=== PATIENT | female | born 1980 | race African-American/Black ===

== ENCOUNTER → 2023-05-31 | Emergency (ER) | payer BC ==
[~2023-05-31] MED LIST: DIPHENHYDRAMINE 50 MG/ML VIAL ONE; KETOROLAC 30 MG/ML INJ ONE; METOCLOPRAMIDE 10 MG/2mL INJ ONE; NA CHLORIDE 0.9% 1,000 ML ONE
--- OUTSIDE RECORDS SUMMARY | 2023-05-31 09:57 | XMS REPORT | Continuity of Care Document ---
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 Name Role Phone PCP, UNKNOWN Primary Care Physician Unavailab le ALVAREZ_GCBZW_Kadiyala_S Attending Clinician Unavaila chiki GOETZ_ Attending Clinician Unavail able EBRAPABLO RIVERO Attending Clinician Unavailable Only, Ang Db Test Attending Clinician Unavailabl e Ebrahim ROLLER MECHANICPablo Attending Clinician [phone] Timoteo Santoyo Attending Clinician Unavailable GC_GCJaisonZW_Kadiyala_S Admitting Clinician Unavaila chiki GOETZ_ Admitting Clinician Unavail able Payers Payer Name Policy Type Policy Number Effective Date Expirati on Date Source [facility] [place] [id number] 2017 00:00:00 [facility] [id number] 2017 00:00:00 Allergies, Adverse Reactions, Alerts Allergy Name Allergy Type Status Severity Reaction(s) Onset Date Inactive Date Treating Clinician Comments Source NO KNOWN ALLERGIE S Drug Class Active [facility] Social History Social Habit Start Date Stop Date Quantity Comments Source Exposure to SARS-CoV-2 (event) Yes [facility] Sex Assigned At 1980 00:00:00 1980 00:00:00 [facility] Smoking Status Start Date Stop Date Source Unknown if ever smoked Unive [facility] Encounters Start Date/Time End Date/Time Encounter Type Admission Type Attending Clinicians Care Facility Care Department Encounter ID Source 2023-04-01 00:00:00 2023-04-01 00:00:00 Outpatient GC_GCBZW_Ka diyvette_S [facility] [id number] [facility] 2021-07-14 12:55:00 2021-07-14 12:55:00 Outpatient CAMILA_DO MAST__ [facility] [id number] [facility] 2021-05-20 13:45:00 2021-05-20 14:14:53 Outpatient R PABLO CARRILLO [facility] [id number] [facility] 2021-05-20 13:45:00 2021-05-20 14:00:00 Laboratory Only Only, Ang Db Test Pablo Carrillo [facility] [id number] [facility] 2021-04-04 18:23:00 2021-04-04 18:23:00 [facility] [id number] [facility] Results Test Description Test Time Test Comments Results Result Co mments Source Drug Screen,[id number] 20:40:00* Test Item Value Reference Range Interpretation Comme nts PCP Phencyclidine Screen,Uri ne (test code = PCPU) Negative Negative Amphetamine Screen,Urine (te st code = AMPU) Negative Negative Methadone Screen,Urine (test code = METHU) Negative Negative Opiate Screen,Urine (test co de = UOPIS) Negative Negative Barbituates Screen,Urine (te st code = BARBU) Negative Negative Benzodiazepines Screen,Urine (test code = UBENZS) Negative Negative Cocaine Screen,Urine (test c ode = UCOCS) Negative Negative Cannabinoid Screen,Urine (te st code = UTHCS) Negative Negative Propoxyphene Screen, Urine ( test code = UPROP) Negative Negative Complete Blood Count Auto [id number] 18:55:00* Test Item Value Reference Range Interpretation Comme nts White Blood Count (test code = WBCT) 13.5 x10 3/uL 4.4-10.5 H Red Blood Count (test code = RBC) 4.87 x10 6/uL 3.75-5.20 N Hemoglobin (test code = HGBT) 12.1 g/dL 12.2-14.8 L Hematocrit (test code = HCTT) 38.4 % 36.5-44.4 N Mean Corpuscular Volume (claudia t code = MCV) 78.90 fL 80.00-100.00 L Mean Corpuscular Hemoglobin (test code = MCH) 24.8 pg 27.0-32.5 L Mean Corpuscular HGB Conc (test code = MCHC) 31.50 g/dL 32.00-37.50 L RDW Coefficient of Variation (test code = RDWCV) 13.5 % 11.5-14.5 N Platelet Count (test code = PLTT) 410.0 x10 3/uL 140.0-440.0 N Mean Platelet Volume (test code = MPV) 9.2 fL Immature Granulocytes % (Aut o) (test code = IMMGRAN%) 0.5 % 0.0-5.0 N Neutrophils % (Auto) (test code = NE%) 80.3 % 36.0-70.0 H Lymphocytes % (Auto) (test code = LY%) 12.6 % 12.0-44.0 N Monocytes % (Auto) (test cod e = MO%) 5.9 % 0.0-11.0 N Eosinophils % (Auto) (test code = EO%) 0.3 % 0.0-7.0 N Basophils % (Auto) (test cod e = BA%) 0.4 % 0.0-2.0 N Immature Granulocytes # (Aut o) (test code = IMMGRAN#) 0.07 x10 3/uL Neutrophils # (Auto) (test code = NE#) 10.9 x10 3/uL 1.6-7.4 H Lymphocytes # (Auto) (test code = LY#) 1.70 x10 3/uL 0.50-4.60 N Monocytes # (Auto) (test cod e = MO#) 0.80 x10 3/uL 0.00-1.20 N Eosinophils # (Auto) (test code = EO#) 0.04 x10 3/uL 0.00-0.74 N Basophils # (Auto) (test cod e = BA#) 0.05 x10 3/uL 0.00-0.21 N nRBC Abs (test code = NRBCA) 0 nRBC Pct (test code = NRBCP) 0 % Prothrombin Time [id number] 18:55:00* Test Item Value Reference Range Interpretation Comme nts Prothrombin Time (test code = PT) 10.9 Seconds 9.3-12.1 N *Note New Refer ence Range INR (test code = INR) 1.0 ratio 0.9-1.2 N Reference Interv al is for non-anticoagulated patients.Suggested INR Therapeutic Range for Vitamin K antogonisttherapy:LEV ELS OFTHERAPY INDICATIONS TARGET INR RANGEStandard Dose Venous Thrombosis, 2.0 - 3.0 Atrial Fibrillation, Pulmonary Embolism.High Dose Valvular Heart Disease, 2.5 - 3.5 Mechanical Heart, Intracardiac Thrombosis.*Note New Reference Range HCG, Serum Qual (LAB)2021-04-04 18:55:00* Test Item Value Reference Range Interpretation Comme nts HCG, Serum Qual (LAB) (test code = HCGQ) Negative Negative Comprehensive Metabolic [id number] 18:55:00* Test Item Value Reference Range Interpretation Comme nts SODIUM (test code = NA) 140.0 mmol/L 136.0-145.0 N Potassium,K (test code = K) 3.8 mmol/L 3.0-5.1 N Chloride (test code = CL) 105 mmol/L 98-107 N Carbon Dioxide (test code = CO2) 26 mmol/L 20-31 N Anion Gap (test code = GAP) 9 mmol/L 5-15 N Blood Urea Nitrogen (test co de = BUN) 16 mg/dL 9-23 N Creatinine (test code = CREATT) 0.81 mg/dL 0.55-1.02 N Creatinine Clr Calc Pharmacy (test code = CRCLPHA) 104.80 mL/min Estimated GFR ( Ameri ca (test code = EGFRAA) > 60 mL/min/1.73m2 Estimated GFR (Non Afr Ameri ca (test code = EGFRNAA) > 60 mL/min/1.73m2 BUN/Creatinine Ratio (test c ode = BCRATIO) 20 ratio 10-20 N Glucose (test code = GLU) 102 mg/dL 74-106 N Osmolality,Calculated (test code = OSMOC) 290.7 Calcium (test code = CA) 8.7 mg/dL 8.3-10.6 N Bilirubin,Total (test code = BILIT) 1.0 mg/dL 0.2-1.1 N Aspartate Amino Transferase (test code = AST) 26 U/L 0-34 N Alanine Aminotransferase (te st code = ALT) 14 U/L 10-49 N Total Protein (test code = TP) 7.3 g/dL 5.7-8.2 N Albumin Level (test code = ALB) 4.4 g/dL 3.2-4.8 N Globulin (test code = GLOB) 2.9 mg/dL 2.3-3.5 N Albumin/Globulin Ratio (test code = AGRATIO) 1.5 ratio 0.8-2.0 N Alkaline Phosphatase (test c ode = ALP) 63 U/L 46-116 N Creatine [id number] 18:55:00* Test Item Value Reference Range Interpretation Comme nts Creatine Kinase (test code = CK) 91 U/L 46-171 N Troponin I High [id number] 18:55:00* Test Item Value Reference Range Interpretation Comme nts Troponin I High Sensitivity (test code = TROPHS) < 2.50 pg/mL 0-45 N < 2.5Interpretiv e Comments:* The 99th percentile URL for the assay is <45 pg/ml.* A rise and fall in Troponin I with at least onevalue above the 99th percentile with clinical evidence ofmyocardial ischemia would support a diagnosis of AMI. Adelta of at least 20% is recommended to assess acutechanges in results above the 99th percentile in serialmeasurements. [id number] 18:55:00* Test Item Value Reference Range Interpretation Comme [facility] Lipase (test code = LIP) 21 U/L 12-53 N Ethanol [id number] 18:55:00* Test Item Value Reference Range Interpretation Comme [facility] Ethanol (test code = ETOH) 145 mg/dL CT abdomen pelvis w [facility] [address] [place], [place] [address] Patient Name: Francisco Flores Medical Record#: [id number] Address: [address] City/State/Zip: [place] [address]: Timoteo Santoyo DO Insurance: Self Pay /Age/Sex: 1980/40/F Admit/Reg Date: 04/04/[address]: Timoteo Santoyo DO Location: [facility]/ PCP: PCP,UNKNOWN Date of Service: 04/04/21 Order (s): CT abdomen pelvis w con CPT Code: 94294 Report Number: [id number] Reason for Exam: Abdominal Pain EXAM: CT ABDOMEN AN D PELVIS WITH IV CONTRAST DICTATION LOCATION: H48 HISTORY: Female, 40 years of age with Abdominal Pain TECHNIQUE: Contrast: Nonionic IV contrast was given. No GI contrast was given. Portal venous phase: Abdomen and pelvis Delayed phase: None Reconstructions: Coronal and sagittal One or more of the following dose reduction techniques were used: Automated exposure control; adjustment of the mA and/or kV according to the patient size; and/or use of iterative reconstruction technique. COMPARISON: None FINDINGS: Statements: Exam quality is acceptable. Lower thorax: Unremarkable. Hepatobiliary: The liver is normal without focal lesion. The gallbladder is normal. No biliary dilation. Pancreas: Normal. Spleen: Normal. Adrenals: Normal. Genitourinary: No solid renal mass, significant cortical thinning, obvious renal stone or hydronephrosis. Ureters are unremarkable. Urinary bladder is unremarkable. Tampon seen in the vagina. Uterus is retroflexed, enlarged, lobulated, and heterogeneous suggesting multiple fibroids. Ovaries are normal. Gastrointestinal: There is questionable mild mucosal thickening versus contraction in the distal ascending colon, hepatic flexure, transverse colon, and splenic flexure suggesting nonspecific colitis. No other focal bowel wall thickening. No evidence for bowel obstruction. No perienteric inflammation. The appendix is normal. Vascular: No aortic aneurysm or dissection. IVC is unremarkable. Portal vein is patent. Lymphatics: No enlarged lymph nodes byCT size criteria. Bones/Soft Tissues: No acute osseous findings. There are bilateral breast implants. Small 1 cm fat- containing umbilical hernia is noted. No other ventral hernias are seen. Peritoneum/Other: No free intraperitoneal air. Small amount of free fluid seen in IMPRESSION: 1. Questionablemucosal thickening in colon suggesting nonspecific colitis. Correlate with clinical signs and symptoms. 2. Small amount of free fluid in pelvic cul-de-sac. 3. Fibroid uterus. 4. Normal appendix. Elect ronically signed by: Belkis Spears MD 04/05/2021 12:54 AM CDT - [id number] Dictated By: Belkis Spears MD 04/05/2137 Signed By: Belkis Spears MD 04/05/2137 TD/TT: 04/05/2137 Tech: OMO01 cc: PCPJS; [id number]* Timoteo Santoyo DO; PCP,UNKNOWNEKG ED ElectrocardiogramSt. [address] [address] Patient Name: Francisco Flores Medical Record#: [id number] Address: [address] City/[facility]/Zip: [place] [address]: Timoteo Santoyo DO Insurance: [employer] [facility] /Age/Sex: 1980/40/F Self Pay Admit/Reg Date: 04/04/[address]: Timoteo Santoyo DO Location: [facility]/ PCP: PCP,UNKNOWN Date of Service: 04/04/21 Order (s): EKGED Electrocardiogram CPT Code: 08354 Report Number: [id number] Reason for Exam: CHEST PAIN Sinusrhythm Probable left atrial enlargement Low voltage, precordial leads Abnormal inferior Q waves Summary: Borderline ECG I51.7 Dictated By: Jac Preciado MD 04/04/211905 Signed By: Scott Preciado MD 04/09/21 0953 TD/TT: 04/04/211905 Tech: SVCCPACS cc: PCPJS; [id number]* Timoteo Santoyo DO; PCP,UNKNOWNXR chest 1VSt. [address] [address] Patient Name: Francisco Flores Medical Record#: [id number] Address: [address] City/State/Zip: [place] [address]: Timoteo Santoyo DO Insurance: Self Pay /Age/Sex: 1980 40/F Admit/Reg Date: 04/04/[address]: Timoteo Santoyo DO [facility] PCP: PCP,UNKNOWN Date of Service: 04/04/21 Order (s): XR chest 1V CPT Code: 40178 Report Number: [id number] Reason for Exam: Shortness of Breath LOCATION: Q15 HISTORY: 40-year-old female who presents with dyspnea. COMMENT: A frontal chest radiograph was obtained. The lungsare clear and well-aerated. The cardiac silhouette, marlon, and mediastinum are within normal limits.The skeleton and soft tissues are unremarkable. Cardiac monitoring leads are present. IMPRESSION: Unremarkable chest. Electronically signed by: Nasim Paredes MD 04/04/2021 7:21 PM CDT Dictated By: Nasim Paredes MD 04/04/211912 Signed By: Nasim Paredes MD 04/04/211912 TD /TT: 04/04/211912 Tech: [facility] cc: PCPUNK; [id number]* Timoteo Santoyo DO; PCP,UNKNOWNEKG ED Electrocardiogram[address] [address] Patient Name: Francisco Flores Medical Record#: [id number] Address: [facility] City/State/Zip: [place] [address]: Timoteo Santoyo DO Insurance: [facility] /Age/Sex: 1980/40/F Self Pay Admit/Reg Date: 04/04/[address]: Timoteo Santoyo DO [facility] PCP: PCP,UNKNOWN Date of Service: 04/04/21 Order (s):EKG ED Electrocardiogram CPT Code: 63433 Report Number: [id number] Reason for Exam: Chest Pain Sinus rhythm Anteroseptal infarct, age indeterminate Summary: Abnormal ECG R06.02 Dictated By: Emerald Preciado MD 04/04/211923 Signed By: Jac Preciado MD 04/09/21 0953 TD/TT: 04/04/211923 Tech: SVCCPA cc: PCPUNK; [id number]* Timoteo Santoyo DO; PCP,UNKNOWNCT [facility] [address] [place] [address] Patient Name: Francisco Flores Medical Record#: [id number] Address: [address] City/State/Zip: [place] [address]: Timoteo Santoyo DO Insurance: Self Pay /Age/Sex: 1980/40/F Admit/Reg Date: 04/04/[address]: Timoteo Santoyo DO Location: [facility]/ PCP: PCP,UNKNOWN Date of Service: 04/04/21 Order (s): CT head/brain wo con CPT Code: 14595 Report Number: [id number] Reason for Exam: Injury,unresponsive CT SCAN OF THE HEAD WITHOUT CONTRAST CLINICAL HISTORY: Injury. Unresponsive LOCATION R 16 TECHNIQUE: Helical CT was performed from the skull base to the vertex without IV contrast and provided at 5 mm slice thickness. Coronal and sagittal reconstruction provided. Axial images provided in bone windows as well. One or more the following dose reduction techniques is utilized: Use of iterative reconstruction, automatedexposure control, adjustment of the mAs and Kv for the patient's weight. DLP 815.7 mGy-cm. COMPARISON: None available FINDINGS: There is no CT evidence of acute infarct. No intra or extra-axial hemorrhage or fluid collections. No midline shift or mass effect. Posterior fossa contents are intact. Visualized orbits, paranasal sinus and mastoid air spaces appear within normal limits. Calvarium is intact. IMPRESSION: No acute intracranial findings. Electronically signed by: Keke Yancey MD 04/04/2021 7:01 PM CDT Dictated By: Keke Yancey MD 04/04/211849 Signed By: Keke Viera MD 04/04/211849 TD/TT: 04/04/211849 Tech: LANDON cc: JULIA; [id number]* Timoteo Santoyo DO; PCP,UNKNOWN
[2023-05-31 10:41] LABS: Absolute Lymphocytes (CBC) 1.7 K/uL (0.7-4.9); Hematocrit 35.7 % (36.0-45.0); Lymphocytes % 45.9 % (15.3-44.8); MCV 72.4 fL (80-100); MPV 7.2 fL (7.6-11.3); Platelets 210 thou/uL (152-406); RBC Red Blood Cell Count 4.94 M/uL (3.86-4.86)
[2023-05-31 10:54] LABS: SARS-CoV-2 Antigen Rapid Res Negative (Negative)
[2023-05-31 10:59] LABS: Albumin 3.4 g/dL (3.4-5.0); Bilirubin Total 0.2 mg/dL (0.2-1.0); Potassium 4.1 mEq/L (3.5-5.1); Protein, Total 7.4 g/dL (6.4-8.2)
--- NOTE | 2023-05-31 11:13 | RAD REPORT ---
EXAM DESCRIPTION: Trishat Single View05/31/2023 10:58 am CLINICAL HISTORY: COUGH COMPARISON: Chest Pa And Lat (2 Views) dated 10/06/2016; Chest Single View dated 09/30/2016; Chest Sing le View dated 09/29/2016 TECHNIQUE: Portable AP view of the chest. FINDINGS: The lungs are clear. No pneumothorax or effusion. The cardiomediastinal contours are unre markable. IMPRESSION: No acute cardiopulmonary process.
--- NOTE | 2023-05-31 11:59 | ER ---
Nurse's Notes [facility] Name: Pili Page Age: 42 yrs Sex: Female : 1980 Arrival Date: 05/31/2023 Time: 09:54 Bed 11 Private MD: Diagnosis: Viral infection, unspecified Presentation: 05/31 10:09 Chief complaint: Body aches, fever, night sweats, chills, headache, sore throat, SOB hb nausea, diarrhea, and pain with breathing x 1 week. Coronavirus screen: Client presents with at least one sign or symptom that may indicate coronavirus-19. Standard/surgical mask placed on the client. Provider contacted for isolation considerations. Ebola Screen: No symptoms or risks identified at this time. Initial Sepsis Screen: Does the patient meet any 2 criteria? No. Patient's initial sepsis screen is negative. Does the patient have a suspected source of infection? No. Patient's initial sepsis screen is negative. Risk Assessment: Do you want to hurt yourself or someone else? Patient reports no desire to harm self or others. Onset of symptoms was May 24, 2023. 10:09 Method Of Arrival: Wheelchair hb 10:09 Acuity: KIRSTY 4 hb 10:47 Acuity: KIRSTY 3 iw Triage Assessment: 10:12 General: Appears in no apparent distress. Behavior is calm, cooperative. Pain: Pain hb currently is 4 out of 10 on a pain scale. EENT: Reports sore throat. Neuro: Level of Consciousness is awake, alert, obeys commands, Oriented to person, place, time, situation. Cardiovascular: Patient's skin is warm and dry. Respiratory: Reports shortness of breath Respiratory effort is even, unlabored, Respiratory pattern is regular, symmetrical. GI: Reports diarrhea, nausea. : No signs and/or symptoms were reported regarding the genitourinary system. Derm: Skin is pink, warm \T\ dry. Musculoskeletal: Reports body aches. SOIL CHEMIST: 12:14 LMP 05/2023, unknown tl4 Historical: - Allergies: 10:11 Codeine; hb 10:11 PENICILLINS; hb - Home Meds: 10:11 Mounjaro subcutaneous [Active]; Zoloft Oral [Active]; Albuterol Inhl [Active]; hb - PSHx: 10:11 Breast Augmentation; D\T\C; hb - Immunization history:: Adult Immunizations up to date. - Social history:: Smoking status: Patient denies any tobacco usage or history of. Screenin:13 [facility] ED Fall Risk Assessment (Adult) Score/Fall Risk Level 0 - 2 = Low Risk hb Oriented to surroundings, Maintained a safe environment, Educated pt \T\ family on fall prevention, incl call for assistance when getting out of bed. Abuse screen: Denies threats or abuse. Denies injuries from another. Nutritional screening: No deficits noted. Tuberculosis screening: No symptoms or risk factors identified. Assessment: 10:13 General: See triage assessment. hb 11:41 Reassessment: Patient appears in no apparent distress at this time. Patient and/or iw family updated on plan of care and expected duration. Pain level reassessed. Patient is alert, oriented x 3, equal unlabored respirations, skin warm/dry/pink. Vital Signs: 10:09 BP 114 / 90; Pulse 84; Resp 20; Temp 98.9; Pulse Ox 100% on R/A; Pain 4/10; hb 11:41 BP 103 / 75; Pulse 71; Resp 16; Temp 98.2; Pulse Ox 100% on R/A; iw 12:13 BP 109 / 72; Pulse 72; Resp 16; Pulse Ox 98% on R/A; Pain 5/10; tl4 10:09 Pain Scale: Adult hb 12:13 Pain Scale: Adult tl4 ED Course: 09:57 Patient arrived in ED. mg5 09:57 Pan Kendall MD is Attending Physician. ec2 10:10 Triage completed. hb 10:12 Arm band placed on. hb 10:13 Patient has correct armband on for positive identification. hb 10:13 No provider procedures requiring assistance completed. hb 10:37 Gloria Page, RN is Primary Nurse. iw 10:38 Inserted saline lock: 20 gauge in right antecubital area, using aseptic technique. zm Blood collected. 10:38 Initial lab(s) drawn, by me, sent to lab. zm 10:39 SARS RAPID Sent. zm 10:39 Influenza Screen (a \T\ B) Sent. zm 11:00 CXR XRAY In Process Unspecified. EDMS 12:13 IV discontinued, intact, bleeding controlled, No redness/swelling at site. Pressure tl4 dressing applied. 12:14 Provided Education on: ED process. tl4 Administered Medications: 10:46 Drug: NS 0.9% IV 1000 ml IV at 1 bolus Per protocol; 1000 mL bolus Route: IV; Rate: 1 iw bolus; Site: right antecubital; 12:07 Follow up: Response: No adverse reaction; IV Status: Completed infusion; IV Intake: tl4 1000ml 10:46 Drug: metoCLOPramide IVP 10 mg IVP once; over 1 to 2 minutes Route: IVP; Site: right iw antecubital; 12:06 Follow up: Response: No adverse reaction tl4 10:46 Drug: diphenhydrAMINE IVP 25 mg IVP once Route: IVP; Site: right antecubital; iw 12:06 Follow up: Response: No adverse reaction tl4 10:46 Drug: Ketorolac IVP 15 mg IVP once Route: IVP; Site: right antecubital; iw 12:06 Follow up: Response: No adverse reaction tl4 Medication: 10:13 VIS not applicable for this client. hb Intake: 12:07 IV: 1000ml; Total: 1000ml. tl4 Outcome: 11:58 Discharge ordered by . ec2 12:14 Discharged to home ambulatory, with family, tl4 12:14 Condition: stable 12:14 Discharge instructions given to patient, family, Instructed on discharge instructions, follow up and referral plans. medication usage, Demonstrated understanding of instructions, follow-up care, medications, 12:15 Patient left the ED. tl4 Signatures: Dispatcher [employer] Gloria Hearn RN RN iw Baxter, Heather, RN RN Sandi Wright Jamie Midland mg5 Pan Kendall MD MD ec2 Eder Garcia tl4
--- NOTE | 2023-05-31 11:59 | EDPHYS ---
Physician Documentation [facility] Name: Pili Page Age: 42 yrs Sex: Female : 1980 Arrival Date: 05/31/2023 Time: 09:54 Bed 11 Private MD: ED Physician Pan Kendall HPI: 05/31 10:14 This 42 yrs old Black Female presents to ER via Wheelchair with complaints of Flu ec2 Symptoms. 10:14 Patient arrives today for evaluation of cough and cold symptoms. Patient reports that ec2 she has been experiencing 1 week of symptoms, states she is having cough and congestion as well as decreased p.o. intake, no nausea or vomiting or diarrhea. Patient reports that she has general body aches as well.. 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 - Social history:: Smoking status: Patient denies any tobacco usage or history of. ROS: 10:14 Constitutional: as per hpi ec2 Exam: 10:14 Constitutional: GEN: NAD Head: atraumatic Eyes: EOMI Ears: External ears are ec2 normal. CV: regular rate LUNGS: no respiratory distress, no wheezes, rales, or rhonchi ABD: non-distended, soft, not guarding, not rigid SKIN: no evidence of rashes MSK: no evidence of trauma NEURO: moves all extremities equally Vital Signs: 10:09 BP 114 / 90; Pulse 84; Resp 20; Temp 98.9; Pulse Ox 100% on R/A; Pain 4/10; hb 11:41 BP 103 / 75; Pulse 71; Resp 16; Temp 98.2; Pulse Ox 100% on R/A; iw 12:13 BP 109 / 72; Pulse 72; Resp 16; Pulse Ox 98% on R/A; Pain 5/10; tl4 10:09 Pain Scale: Adult hb 12:13 Pain Scale: Adult tl4 MDM: 10:08 Patient medically screened. ec2 10:14 Data reviewed: vital signs. ED course: Patient arrives today due to concern for URI ec2 signs symptoms. Examination is remarkable for well-appearing nontoxic individual is otherwise in no acute distress with a reassuring cardiopulmonary examination. Will obtain lab work, chest x-ray, viral swabs. Currently considering processes such as viral infection, pneumonia. . 11:01 ED course: CBC shows slight leukopenia slight anemia noted. Metabolic profile is ec2 reassuring, appropriate renal function. Negative flu and COVID testing. Chest x-ray independently reviewed and interpreted by me, shows no acute intrathoracic process. . 11:57 ED course: On reassessment patient is well-appearing in no acute distress. Will ec2 discharge home, suspect viral process. Return precautions given.. 12 10:14 Order name: CBC with Diff; Complete Time: 11:00 ec2 05/31 10:14 Order name: CMP; Complete Time: 11:00 ec2 05/31 10:14 Order name: Influenza Screen (a \T\ B); Complete Time: 11:00 ec2 05/31 10:14 Order name: SARS RAPID; Complete Time: 11:00 ec2 05/31 10:14 Order name: CXR XRAY; Complete Time: 11:28 ec2 Administered Medications: 10:46 Drug: NS 0.9% IV 1000 ml IV at 1 bolus Per protocol; 1000 mL bolus Route: IV; Rate: 1 iw bolus; Site: right antecubital; 12:07 Follow up: Response: No adverse reaction; IV Status: Completed infusion; IV Intake: tl4 1000ml 10:46 Drug: metoCLOPramide IVP 10 mg IVP once; over 1 to 2 minutes Route: IVP; Site: right iw antecubital; 12:06 Follow up: Response: No adverse reaction tl4 10:46 Drug: diphenhydrAMINE IVP 25 mg IVP once Route: IVP; Site: right antecubital; iw 12:06 Follow up: Response: No adverse reaction tl4 10:46 Drug: Ketorolac IVP 15 mg IVP once Route: IVP; Site: right antecubital; iw 12:06 Follow up: Response: No adverse reaction tl4 Disposition Summary: 05/31/23 11:58 Discharge Ordered Notes: Location: Home ec2 Condition: Stable ec2 Diagnosis - Viral infection, unspecified ec2 Followup: ec2 - With: Private Physician - When: - Reason: Recheck today's complaints Discharge Instructions: - Discharge Summary Sheet ec2 - Viral Illness, Adult ec2 Forms: - Work release form ec2 - Medication Reconciliation Form ec2 - Thank You Letter ec2 - Antibiotic Education ec2 - Prescription Opioid Use ec2 - Patient Portal Instructions ec2 - Leadership Thank You Letter ec2 Prescriptions: - Compazine 10 mg Oral Tablet - take 1 tablet ORAL route every 8 hours As needed; 20 tablet; Refills: 0, ec2 Product Selection Permitted Signatures: Dispatcher [employer] Gloria Hearn RN RN iw Margot Jenkins RN RN hb Corral, Edwin, MD MD ec2 [employer] lambert 4
[2023-05-31 13:18] VITALS: BP 109/72; TEMP 98.2; O2SAT 98
== END ==
LOC: SUPCPDRO 09:54 → ER 09:54
DX: B34.9 Viral infection, unspecified (principal); Z11.52 Encounter for screening for COVID-19; Z98.82 Breast implant status; Z88.0 Allergy status to penicillin; Z88.5 Allergy status to narcotic agent
CPT/HCPCS: 96361; 85025; 36415; 80053; 87804 ×2; 71045; 96375; 96374; 99284; 87811; J2765; J1200; J7030